=== PATIENT | male | born 1940 | race African-American/Black ===

== ENCOUNTER 2018-07-06 09:21 | Emergency (ER) | payer MEDICARE ==
[~2018-07-06 09:21] MED LIST: Iopamidol 370 76% 100 ML VIAL ONE
[2018-07-06] MEDS ORDERED: hydrALAZINE 20 MG/ML VIAL ONE (10:18)
[2018-07-06 10:22] LABS: #Basophils 0.1 thou/uL (0.0-0.2); #Eosinphils 0.1 thou/uL (0.0-0.7); #Lymphocytes 2.3 thou/uL (1.20-3.40); #Monocytes 0.5 thou/uL (0.11-0.59); %Basophils 1.4 % (0.0-1.0); %Eosinophils 0.8 % (0.0-10.0); %Lymphocytes 32.8 % (21.0-51.0); %Monocytes 7.6 % (0.0-10.0); %Neutrophils 57.4 % (42.0-75.0); Hemoglobin 15.1 g/dL (14.0-18.0); Mean Corpuscular Hemoglobin 27.4 pg (27.0-31.0); Mean Corpuscular Volume 88.5 fL (78.0-98.0); Mean Platelet Volume 6.2 fL (7.4-10.4); Platelet Count 185 thou/uL (130-400); RBC Distribution Width 12.4 % (11.5-14.5); Red Blood Cell (RBC) Count 5.51 mill/uL (4.70-6.10)
[2018-07-06 10:25] LABS: CKMB 1.5 ng/mL (0-6.6); Troponin I 0.125 ng/mL (< 0.028)
[2018-07-06 10:26] LABS: ALT (SGPT) 10 U/L (8-55); AST (SGOT) 14 U/L (5-34); Albumin 3.6 g/dL (3.4-4.8); Alkaline Phosphatase 97 U/L (40-150); Anion Gap 16 mmol/L (10-20); BUN (Urea Nitrogen) 8 mg/dL (8.4-25.7); Bilirubin, Total 1.2 mg/dL (0.2-1.2); CK (CPK) 59 U/L (30-200); Calc. Creatinine Clearance 0 mL/min (70-130); Calcium 9.3 mg/dL (7.8-10.44); Carbon Dioxide 24 mmol/L (23-31); Chloride 102 mmol/L (98-107); Estimated GFR-MDRD Greater than 90; Globulin 3.5 g/dL (2.4-3.5); Glucose 101 mg/dL (83-110); Potassium 4.1 mmol/L (3.5-5.1); Protein, Total 7.1 g/dL (5.8-8.1); Sodium 138 mmol/L (136-145)
--- NOTE | 2018-07-06 10:49 | RAD ---
SINGLE VIEW OF THE CHEST: Comparison: 03-10-12 History: Shortness of breath, chest pain with inspiration. FINDINGS: Single view of the chest shows a normal sized cardiomediastinal silhouette. There is no evidence of c onsolidation, mass, or pleural effusion. The bones are unremarkable. IMPRESSION: No evidence of acute cardiopulmonary disease. POS: [facility]
--- NOTE | 2018-07-06 12:14 | CT ---
CTA OF THE CHEST WITH CONTRAST: Comparison: None. History: Woke up this morning with pain with deep breathing. Elevated D-Dimer. Technique: Multiple contiguous axial images were obtained in a CTA of the chest with contrast per pul monary aneurysm protocol. 3D oblique MIP reformats and coronal reformats were performed. FINDINGS: There are filling defects in the bilateral pulmonary arteries consistent with pulmonary emboli. This is more prominent in the right lower lobe pulmonary arteries. No shift of the intraventricular septum is seen to suggest right heart overload. The heart is normal in size. No hilar or mediastinal lympha denopathy are seen. Atelectasis is seen in the left lung base. No pneumothorax or pleural effusions are seen. No suspicio us pulmonary nodules are present. No focal infiltrates are seen. The visualized subdiaphragmatic structures are unremarkable. Degenerative changes are seen in the spi ne. The chest wall soft tissues are unremarkable. IMPRESSION: Bilateral pulmonary emboli. Dr. Porter notified of the findings at 12:01 p.m. on 07-06-18. Code CR POS: [id number]
[2018-07-06] MEDS ORDERED: Enoxaparin Sodium 80 MG/0.8 ML SYRINGE ONE (12:17)
== END 2018-07-06 13:23 | disposition short-term general hospital (02) ==
LOC: NAV ERS 09:21
DX: I26.99 Other pulmonary embolism without acute cor pulmonale (principal); I10 Essential (primary) hypertension; F17.210 Nicotine dependence, cigarettes, uncomplicated
CPT/HCPCS: 71045; 71275; 80053; 82550; 82553; 83880; 84484; 85025; 85379; 93005; 94640; 96372; 96374; J0360; J1650; J7620

== ENCOUNTER 2020-05-31 11:26 | Emergency (ER) | payer MEDICARE ==
[2020-05-31 12:26] LABS: #Basophils 0.1 thou/uL (0.0-0.2); #Lymphocytes 2.5 thou/uL (1.20-3.40); #Monocytes 0.8 thou/uL (0.11-0.59); #Neutrophils 4.1 thou/uL (1.40-6.50); %Basophils 0.9 % (0.0-1.0); %Eosinophils 0.4 % (0.0-10.0); %Lymphocytes 33.2 % (21.0-51.0); %Monocytes 10.2 % (0.0-10.0); %Neutrophils 55.3 % (42.0-75.0); Hemoglobin 12.2 g/dL (14.0-18.0); Mean Corpuscular HGB CONC 30.4 g/dL (32.0-36.0); Mean Corpuscular Volume 88.8 fL (78.0-98.0); Mean Platelet Volume 7.7 fL (7.4-10.4); Platelet Count 185 thou/uL (130-400); RBC Distribution Width 12.6 % (11.5-14.5); Red Blood Cell (RBC) Count 4.51 mill/uL (4.70-6.10); White Blood Cell (WBC) Count 7.5 thou/uL (4.8-10.8)
[2020-05-31] MEDS ORDERED: Clindamycin/D5W 600 mg/50 ml Premix Bag ONE (12:57)
[2020-05-31 13:25] LABS: ALT (SGPT) 9 U/L (8-55); AST (SGOT) 13 U/L (5-34); Albumin 3.4 g/dL (3.4-4.8); Alkaline Phosphatase 93 U/L (40-110); Anion Gap 11 mmol/L (10-20); BUN (Urea Nitrogen) 7 mg/dL (8.4-25.7); Bilirubin, Total 0.9 mg/dL (0.2-1.2); Calc. Creatinine Clearance 0 mL/min (70-130); Calcium 8.7 mg/dL (7.8-10.44); Carbon Dioxide 26 mmol/L (23-31); Chloride 99 mmol/L (98-107); Estimated GFR-MDRD Greater than 90; Globulin 3.4 g/dL (2.4-3.5); Glucose 70 mg/dL (83-110); Potassium 4.1 mmol/L (3.5-5.1); Protein, Total 6.8 g/dL (5.8-8.1); Sodium 132 mmol/L (136-145)
--- NOTE | 2020-05-31 14:59 | CT ---
Exam: CT of the upper extremity with and without contrast HISTORY: Imaging of the pulmonary hand. Swelling. COMPARISON: none FINDINGS: There do not appear any precontrast images. Postcontrast images are somewhat limited due to 40 cc of contrast leaking out of the IV. There is contrast opacification of the vasculature. There does not appear to be any obvious mass or h ematoma. No obvious drainable abscess. There does appear to be mild induration of the subcutaneous fat and soft tissues at the level of the hyperthenar and the thenar eminence. There are no erosive or destructive changes in the osseous structures. There is no evidence of fracture. IMPRESSION: Limited postcontrast exam. Nonspecific soft tissue prominence at the hyperthenar and then ar eminence. No obvious drainable abscess. Better interrogation with a soft tissue MRI of the region of interest is recommended.
== END 2020-05-31 15:18 | disposition home or self-care (01) ==
LOC: NAV ERS 11:26
DX: L03.114 Cellulitis of left upper limb (principal); M79.89 Other specified soft tissue disorders; I10 Essential (primary) hypertension; Z79.899 Other long term (current) drug therapy
CPT/HCPCS: 80053; 85025; 96365; J3490; Q9967

== ENCOUNTER 2020-06-11 13:00 | Emergency (ER) | payer MEDICARE ==
[2020-06-11] MEDS ORDERED: Ibuprofen 200 MG TAB ONE (13:44)
[2020-06-11 13:57] LABS: #Basophils 0.1 thou/uL (0.0-0.2); #Eosinphils 0.1 thou/uL (0.0-0.7); #Lymphocytes 2.5 thou/uL (1.20-3.40); #Monocytes 0.5 thou/uL (0.11-0.59); #Neutrophils 3.8 thou/uL (1.40-6.50); %Basophils 1.4 % (0.0-1.0); %Eosinophils 0.8 % (0.0-10.0); %Lymphocytes 36.2 % (21.0-51.0); %Neutrophils 54.6 % (42.0-75.0); Hemoglobin 12.4 g/dL (14.0-18.0); Mean Corpuscular HGB CONC 30.4 g/dL (32.0-36.0); Mean Corpuscular Hemoglobin 26.9 pg (27.0-31.0); Mean Corpuscular Volume 88.3 fL (78.0-98.0); Mean Platelet Volume 6.8 fL (7.4-10.4); Platelet Count 262 thou/uL (130-400); RBC Distribution Width 12.9 % (11.5-14.5)
== END 2020-06-11 14:32 | disposition home or self-care (01) ==
LOC: NAV ERS 13:00
DX: M19.042 Primary osteoarthritis, left hand (principal); I10 Essential (primary) hypertension; Z87.891 Personal history of nicotine dependence; Z79.899 Other long term (current) drug therapy
CPT/HCPCS: 85025; 99283